=== PATIENT | female | born 1940 | race Caucasian/White ===

== ENCOUNTER 2017-11-29 13:26 | Emergency (ER) | payer MEDICARE, OTHER ==
[~2017-11-29 13:26] MED LIST: AML5 PO; AMLO-96 PO; AMOX-559 PO; ATR10 PO; AZIT-18; ESCI20TA38 PO; FLUC150T40 PO; LEVE500T73 PO; LISI-368 PO; METO25TA93 PO; ONDA4TAB97; PAN40 PO; PANT40SU3 PO; TRA50 PO; [UNRECOGNIZED DRUG - CODE]; oxygen
--- NOTE | 2017-11-29 14:04 | ER Report ---
History and Physical Time Seen By MD: 14:04 Hx. of Stated Complaint: PT PRESENTS WITH HX OF FALLING LAST THURSDAY INJURING HER L KNEE (CLEMENTE TREJO MD) HPI/ROS CHIEF COMPLAINT: Left knee pain status post fall HISTORY OF PRESENT ILLNESS: Patient is a 77-year-old female who lives in [facility]. Approximate 7 days ago she tripped over a step going into her bedroom and injured her right knee. She is been having increasing pain with ambulation to the left knee. She has been taking Advil with some relief of her pain. She is no prior left knee problems. The pain is located to bilateral joint spaces. Made worse with ambulation. Patient was offered pain medication but she refused at this time REVIEW OF SYSTEMS: Respiratory: No cough, no dyspnea. Cardiovascular: No chest pain, no palpitations. Gastrointestinal: No vomiting, no abdominal pain. Musculoskeletal: No back pain. Left knee pain (CLEMENTE TREJO MD) Allergies: Coded Allergies: No Known Drug Allergies (Unverified , 11/29/17) Home Meds Active Scripts Diclofenac Sodium 1% Gel (VOLTAREN 1% GEL) 100 Gm Gel..gram., 4 G TOP Q6H Y for PAIN, #1 TUBE Prov:LAURORA,AMBER V DO 11/29/17 Reported Medications Metoprolol Tartrate (METOPROLOL TARTRATE) 25 Mg Tablet, 1 TAB PO BID TAKE ONE TABLET BY MOUTH TWICE A DAY 01/07/13 Amlodipine Besylate (AMLODIPINE BESYLATE) 5 Mg Tablet, 1 TAB PO QDAY TAKE ONE TABLET BY MOUTH EVERY DAY 01/07/13 Lisinopril (Lisinopril) 20 Mg Tablet, 20 MG PO DAILY, #30 0 Refills 09/05/12 Escitalopram Oxalate (Lexapro) 20 Mg Tablet, 10 MG PO QDAY, 0 Refills 09/05/12 Discontinued Reported Medications Pantoprazole Sodium (PROTONIX) 40 Mg Granpkt.dr, 40 MG PO QDAY, PACK DISSOLVE ONE PACKET INTO 8 OUNCES OF WATER AND DRINK ONE DAILY. 01/07/13 Fluconazole (DIFLUCAN) 150 Mg Tablet, 150 MG PO QDAY 01/04/13 Amoxicillin/Pot Clav 875-125 Mg Tab (AUGMENTIN 875-125 TABLET) 1 Each Tablet, 1 TAB PO Q12H TAKE ONE TABLET BY MOUTH EVERY 12 HOURS take with food 01/04/13 [oxygen] No Conflict Check, 2 2 liters nc 01/04/13 Levetiracetam (Levetiracetam) 500 Mg Tablet, 250 MG PO BID, 0 Refills 09/05/12 Past Medical/Surgical History Hypertension (CLEMENTE TREJO MD) Hx Smoking: No Exposure to Second Hand Smoke?: No Hx Substance Use Disorder: No Hx Alcohol Use: No (CLEMENTE TREOJ MD) Constitutional Vital Sign - Last 24 Hours 11/29/17 11/29/17 13:33 14:35 Temp 97.5 Pulse 67 Resp 20 B/P (MAP) 144/77 144/77 (99) Pulse Ox 90 O2 Delivery Room Air (AMBER KLEIN DO) Physical Exam General appearance: Alert no distress. Left knee: There is no significant swelling. There is no effusion. There is no obvious deformity of the knee. There is moderate tenderness to the medial and lateral joint spaces The joint is stable with no comparable ligamentous laxity to the knee. There is no tenderness proximal or distal to the knee. Neurologic exam: The patient has normal sensation distal to the injury. Vascular exam: Normal pulses and capillary refill in the foot (CLEMENTE TREJO MD) Medical Decision Making ED Course/Re-evaluation ED Course 11/29/2017 3:50:38 pm Pt signed out to me pending MRI. Preliminary report was read by Dr. Torres at [facility]. He states that there is no major legament damage. There is a question of possible small tear in her medial meniscus vs it being a normal variant. Pt also has some edema near her medial collateral ligament however it is still intact. Popliteal cyst and an effusion. 11/29/2017 4:05:10 pm spoke with pt. she is staying the summer in [place] but lives in [place]. told to follow up with orthopedics here locally. knee immobilizer supplied. Pt asked for a topical pain medication. Sent gertrudis. Decision to Disposition Date: Nov 29, 2017 Decision to Disposition Time: 16:06 (AMBER KLEIN DO) Depart Departure Latest Vital Signs Vital Signs Date Time Temp Pulse Resp B/P (MAP) Pulse Ox O2 Delivery O2 Flow Rate FiO2 11/29/17 14:35 144/77 (99) 11/29/17 13:33 97.5 67 20 90 Room Air (AMBER KLEIN DO) Impression: Primary Impression: Acute meniscal tear of left knee Additional Impression: Knee pain, acute Condition: Improved Disposition: HOME OR SELF-CARE Referrals: [facility] 2 Days New Scripts Diclofenac Sodium 1% Gel (VOLTAREN 1% GEL) 100 Gm Gel..gram. 4 G TOP Q6H Y for PAIN, #1 TUBE Prov: AMBER KLEIN DO 11/29/17 Patient Instructions: Meniscus Tear (GEN) Additional Instructions: We obtained an MRI of your knee. The MRI will be officially read tomorrow by the radiologist. They did do a preliminary read today which will be verified tomorrow. They did not see a tear in any of your major ligaments. No fractures. You do have a possible small tear in your medial meniscus. You need to follow up with orthopedics. I have supplied you with the number for [facility]. ice, elevate and rest your knee Use knee immobilizer for comfort. Diclofenac topical cream apply 4 times a day as needed for discomfort. Problem Qualifiers Primary Impression: Acute meniscal tear of left knee Encounter type: initial encounter Qualified Codes: S83.207A - Unspecified tear of unspecified meniscus, current injury, left knee, initial encounter Additional Impression: Knee pain, acute Laterality: left Qualified Codes: M25.562 - Pain in left knee CLEMENTE TREJO MD Nov 29, 2017 14:04 AMBER KLEIN DO Nov 29, 2017 15:52
--- NOTE | 2017-11-29 14:28 | RADIOLOGY IMAGING REPORT ---
FACILITY: [facility] [place] PATIENT NAME: Valery Luna : 1940 MR: [id number] V: [id number] EXAM DATE: ORDERING PHYSICIAN: CLEMENTE TREJO TECHNOLOGIST: Location: [facility] [place] Patient: Valery Luna : 1940 Visit/Account:[id number] Date of Sevice: 11/29/2017 KNEE 3 VIEW LEFT COMPARISONS: None. ADDITIONAL PERTINENT HISTORY: Increasing pain after fall 7 days ago. FINDINGS: Osseous structures: Negative. Joint spaces: Negative. Surrounding soft tissues: Negative. IMPRESSION: Normal views of the left knee. Report Dictated By: Felipe Claros MD at 11/29/2017 2:23 PM Report E-Signed By: Felipe Claros MD at 11/29/2017 2:24 PM WSN:[id number]
[2017-11-29 16:00] VITALS: BP 142/81
[2017-11-29] MEDS ORDERED: DICL100G39 TOP (16:04)
--- NOTE | 2017-11-30 10:15 | RADIOLOGY IMAGING REPORT ---
FACILITY: [facility] PATIENT NAME: Valery Luna : 1940 MR: [id number] V: [id number] EXAM DATE: ORDERING PHYSICIAN: CLEMENTE TREJO TECHNOLOGIST: Location: [facility] [place] Patient: Valery Luna : 1940 Visit/Account:[id number] Date of Sevice: 11/29/2017 MRI left knee Indication: Increasing pain Comparison: None available. Technique: Multiplanar, multisequence MRI examination is performed of the left knee without contrast. Findings: Medial compartment: Extensive complex undersurface tear of the posterior horn and body medial meniscus with moderate medi al extrusion at the medial joint line. There is mild to moderate partial thickness chondral loss mid weightbearing medial femoral condyle ca rtilage. Lateral compartment: There is a small undersurface tear posterior horn lateral meniscus. The articular cartilage surfaces are unremarkable. Patellofemoral compartment: There is partial-thickness fissuring and chondral loss lateral facet patella cartilage with underlyin g prominent subchondral edema Bones and marrow: No acute or aggressive osseous abnormality. Ligaments and tendons: ACL and PCL are intact. The extensor mechanism is intact. Mild edema superficial and deep to the MCL consistent with mild sprain. The iliotibial band, biceps femoris tendon, and the fibular collateral ligament is intact The popliteus tendon is also intact. Soft tissues: There is a moderate to large sized suprapatellar joint effusion. IMPRESSION: 1. Complex medial meniscal tear as above. 2. Moderate to large sized suprapatellar joint effusion. 3. Mild MCL sprain. Report Dictated By: Micheal Hager MD at 11/30/2017 9:55 AM Report E-Signed By: Micheal Hager MD at 11/30/2017 10:13 AM WSN:[id number]
== END 2017-11-29 16:15 | disposition home or self-care (01) ==
LOC: ER 14:02
DX: S83.207A Unspecified tear of unspecified meniscus, current injury, left knee, initial encounter (principal)
CPT/HCPCS: 73562; 73721; 99284; L1830

== ENCOUNTER 2017-12-06 11:39 | Emergency (ER) | payer MEDICARE, OTHER ==
[~2017-12-06 11:39] MED LIST changes: +DICL100G39 TOP
[2017-12-06] MEDS ORDERED: traMADol 50 MG TAB PO ONE (11:55)
[2017-12-06] MEDS ORDERED: TETRACAIN/EPI/LIDO GEL 3ML SYR TP ONE (12:05)
[2017-12-06 12:30] VITALS: BP 115/72
--- NOTE | 2017-12-06 12:33 | RADIOLOGY IMAGING REPORT ---
FACILITY: [facility] PATIENT NAME: Valery Luna : 1940 MR: [id number] V: [id number] EXAM DATE: ORDERING PHYSICIAN: KIAN WOODALL TECHNOLOGIST: [place] [facility] [place] Patient: Valery Luna : 1940 Visit/Account:[id number] Date of Sevice: 12/06/2017 WRIST LEFT MIN 3 VIEW Indication: Left wrist injury. Comparison: None available. Findings: 3 views of the left wrist. Soft tissue swelling along the distal radius end posterior wrist. No evidence of acute fracture, disl ocation, or radiopaque foreign body. Mild diffuse osteopenia. Normal joint spaces and alignment. Impression: Soft tissue swelling along the distal radius and posterior wrist. No evidence of acute fr acture, dislocation, or radiopaque foreign body. Report Dictated By: Krystian Chatman MD at 12/06/2017 12:27 PM Report E-Signed By: Krystian Chatman MD at 12/06/2017 12:30 PM WSN:[id number]
--- NOTE | 2017-12-06 12:34 | ER Report ---
History and Physical Time Seen By MD: 11:10 Hx. of Stated Complaint: PATIENT REPORTS FALLING DOWN 4 STAIRS AND LANDING ON HER LEFT ARM. PATIENT HAS A LARGE SKIN TEAR ON LEFT FOREARM AND A DERFORMITY ON LEFT WRIST HPI/ROS CHIEF COMPLAINT: Left wrist injury HISTORY OF PRESENT ILLNESS: Patient is 77-year-old female who presents to ED with complaint of left wrist injury. She states that she fell down the stairs onto her left hand and did have a skin tear along her left wrist area. She has pain primarily on the radial aspect of her wrist. She has noted some swelling and bruising in this area. She states that this occurred about 2-3 hours ago. She has not taken any medication for this. Etc. tetanus shot is up-to-date. REVIEW OF SYSTEMS: Constitutional: No fever, no chills. Cardiovascular: No chest pain, no palpitations. Respiratory: No cough, no shortness of breath. Musculoskeletal: See history of present illness. Skin: See history of present illness. Neurological: No headache. Allergies: Coded Allergies: No Known Drug Allergies (Unverified , 11/29/17) Home Meds Active Scripts Diclofenac Sodium 1% Gel (VOLTAREN 1% GEL) 100 Gm Gel..gram., 4 G TOP Q6H Y for PAIN, #1 TUBE Prov:AMBER KLEIN DO 11/29/17 Reported Medications Metoprolol Tartrate (METOPROLOL TARTRATE) 25 Mg Tablet, 1 TAB PO BID TAKE ONE TABLET BY MOUTH TWICE A DAY 01/07/13 Amlodipine Besylate (AMLODIPINE BESYLATE) 5 Mg Tablet, 1 TAB PO QDAY TAKE ONE TABLET BY MOUTH EVERY DAY 01/07/13 Lisinopril (Lisinopril) 20 Mg Tablet, 20 MG PO DAILY, #30 0 Refills 09/05/12 Escitalopram Oxalate (Lexapro) 20 Mg Tablet, 10 MG PO QDAY, 0 Refills 09/05/12 Discontinued Reported Medications Pantoprazole Sodium (PROTONIX) 40 Mg Granpkt.dr, 40 MG PO QDAY, PACK DISSOLVE ONE PACKET INTO 8 OUNCES OF WATER AND DRINK ONE DAILY. 01/07/13 Fluconazole (DIFLUCAN) 150 Mg Tablet, 150 MG PO QDAY 01/04/13 Amoxicillin/Pot Clav 875-125 Mg Tab (AUGMENTIN 875-125 TABLET) 1 Each Tablet, 1 TAB PO Q12H TAKE ONE TABLET BY MOUTH EVERY 12 HOURS take with food 01/04/13 [oxygen] No Conflict Check, 2 2 liters nc 01/04/13 Levetiracetam (Levetiracetam) 500 Mg Tablet, 250 MG PO BID, 0 Refills 09/05/12 Reviewed Nurses Notes: Yes Old Medical Records Reviewed: Yes Hx Smoking: No Exposure to Second Hand Smoke?: No Hx Substance Use Disorder: No Hx Alcohol Use: No Constitutional Vital Sign - Last 24 Hours 12/06/17 11:48 Temp 97.8 Pulse 58 Resp 20 B/P (MAP) 128/78 Pulse Ox 94 O2 Delivery Room Air Physical Exam General Appearance: The patient is alert, has no immediate need for airway protection and no signs of toxicity. Respiratory: There are no retractions, lungs are clear to auscultation. Cardiovascular: Regular rate and rhythm. Skin: There is a skin tear noted on the radial aspect of the wrist to the distal forearm area. This measures about 3 cm x 1.5 cm. No active bleeding is present.. Musculoskeletal: Neck is supple non tender. There is some pain with palpation of the radial aspect of the wrist. There is some ecchymosis and swelling noted in this area. Radial pulses 2+ with normal capillary refill. Normal sensation. Limited range of motion due to pain. DIFFERENTIAL DIAGNOSIS: After history and physical exam differential diagnosis was considered for left wrist injury including fracture, sprain, contusion. Medical Decision Making EKG/Imaging Imaging Left Wrist Xrays: Impression: Soft tissue swelling along the distal radius and posterior wrist. No evidence of acute fracture, dislocation, or radiopaque foreign body. Report Dictated By: Krystian Chatman MD at 12/06/2017 12:27 PM Report E-Signed By: Krystian Chatman MD at 12/06/2017 12:30 PM ED Course/Re-evaluation ED Course Will obtain left wrist x-rays. Pt given 50 mg by mouth child all for pain relief. Will apply let gel to the skin tear. 12/06/2017 12:50:00 pm - discussed x-ray results with patient. There appears to be no fracture. She likely has a left wrist sprain. The skin tear was cleaned thoroughly and bacitracin was applied as well as bandage and Damon wrap for her left wrist. Decision to Disposition Date: Dec 06, 2017 Decision to Disposition Time: 12:50 Depart Departure Latest Vital Signs Vital Signs Date Time Temp Pulse Resp B/P (MAP) Pulse Ox O2 Delivery O2 Flow Rate FiO2 12/06/17 11:48 97.8 58 20 128/78 94 Room Air Impression: Primary Impression: Left wrist sprain Additional Impression: Tear of skin of left wrist Condition: Improved Disposition: HOME OR SELF-CARE Patient Instructions: Skin Tear (ED), Wrist Sprain (ED) Additional Instructions: Rest, ice, elevate. May take Tylenol for pain relief. Follow-up with primary care provider in 2-3 days. If having any worsening or concerning symptoms may return to the emergency department. Monitor for signs and symptoms of infection including redness, swelling, discharge, fever. Problem Qualifiers Primary Impression: Left wrist sprain Encounter type: initial encounter Qualified Codes: S63.502A - Unspecified sprain of left wrist, initial encounter Additional Impression: Tear of skin of left wrist Encounter type: initial encounter Qualified Codes: S61.512A - Laceration without foreign body of left wrist, initial encounter KIAN WOODALL PA-C Dec 06, 2017 12:34
== END 2017-12-06 13:04 | disposition home or self-care (01) ==
LOC: ER 11:52
DX: S63.502A Unspecified sprain of left wrist, initial encounter (principal); S61.512A Laceration without foreign body of left wrist, initial encounter; W10.9XXA Fall (on) (from) unspecified stairs and steps, initial encounter
CPT/HCPCS: 73110; 99283; A9270